=== PATIENT | female | born 1945 | race Two or more races ===

== ENCOUNTER 2017-09-03 18:31 | Emergency (ER) | payer MEDICARE, OTHER ==
[~2017-09-03] VITALS: Ht 165.1 cm; Wt 63.5 kg
[2017-09-03] MEDS ORDERED: methylPREDNISolone SOD SUCC 125 MG/2 ML VL IV ONE (19:45)
[2017-09-03 20:28] LABS: Basophils # (auto) 0 uL; Basophils % (auto) 0.4 % (0.0-2.0); Eosinophils # (auto) 0.1 uL; Eosinophils % (auto) 1.6 % (0.0-7.0); Hematocrit 38.8 % (36.0-46.0); Lymphocytes # (auto) 2.6 uL; Lymphocytes % (auto) 51.7 % (10.0-50.0); Mean Corpuscular Hemoglobin 32.7 pg (28.0-32.0); Mean Corpuscular Hgb Conc. 33.5 g/dL (32.0-36.0); Mean Corpuscular Volume 97.8 fL (80.0-100.0); Monocytes # (auto) 0.4 uL; Monocytes % (auto) 7.7 % (0.0-12.0); Neutrophils % (auto) 38.6 % (37.0-80.0); Nucleated Red Blood Cells % 0.1 %; Platelet Count (auto) 219 10^3/uL (140-450); White Blood Cell 5.1 10^3/uL (4.4-10.8)
[2017-09-03 20:40] LABS: Albumin 3.7 g/dL (3.4-5.0); Alkaline Phosphatase 70 U/L (45-117); Anion Gap 10 (5-15); Aspartate Aminotransferase 40 U/L (15-37); BUN/Creatinine Ratio 14.1; Bilirubin, Total 0.4 mg/dL (0.2-1.0); Blood Urea Nitrogen 9 mg/dL (7-18); Calcium 8.7 mg/dL (8.5-10.1); Carbon Dioxide 23 mmol/L (21-32); Chloride 106 mmol/L (98-107); GFR African American 118 mL/min; GFR Non-African American 97 mL/min; Glucose 91 mg/dL (74-106); Magnesium 2.5 mg/dL (1.6-2.6); Potassium 3.4 mmol/L (3.5-5.1); Sodium 139 mmol/L (136-145); Total Protein 7.5 g/dL (6.4-8.2)
[2017-09-03 21:50] VITALS: BP 146/72
== END 2017-09-03 22:02 | disposition home or self-care (01) ==
LOC: ER 18:40
DX: J44.1 Chronic obstructive pulmonary disease with (acute) exacerbation (principal); Z87.891 Personal history of nicotine dependence
CPT/HCPCS: 36415; 71010; 80053; 83735; 84484; 85025; 93005; 94761; 96374; 99285; J2930

== ENCOUNTER 2018-01-21 11:40 | Emergency (ER) | payer MEDICARE, OTHER ==
[~2018-01-21] VITALS: Ht 160 cm; Wt 70.3 kg
[2018-01-21 11:45] VITALS: BP 147/71
[2018-01-21] MEDS ORDERED: KETOROLAC TROMETH 30 MG/ML 1ML VIAL IM ONE (12:30)
== END 2018-01-21 13:19 | disposition home or self-care (01) ==
LOC: EDBD 11:40 → ER 11:40
DX: S13.4XXA Sprain of ligaments of cervical spine, initial encounter (principal); J44.9 Chronic obstructive pulmonary disease, unspecified; M79.7 Fibromyalgia; Z90.710 Acquired absence of both cervix and uterus; Z88.0 Allergy status to penicillin; V43.52XA Car driver injured in collision with other type car in traffic accident, initial encounter; Y93.89 Activity, other specified; Y99.8 Other external cause status; Y92.89 Other specified places as the place of occurrence of the external cause
CPT/HCPCS: 72125; 96372; 99284; J1885

== ENCOUNTER 2019-12-29 09:14 | Emergency (ER) | payer MEDICARE, OTHER ==
[~2019-12-29] VITALS: Ht 157.5 cm; Wt 69.4 kg
[2019-12-29 10:17] LABS: Urine WBC None Seen /hpf (0 - 5)
[2019-12-29] MEDS: methylPREDNISolone SOD SUCC 125 MG/2 ML VL IV ONE (10:33)
[2019-12-29 10:41] LABS: Urine Bacteria NONE SEEN /hpf (None Seen); Urine Blood Negative /uL (Negative); Urine Specific Gravity 1.005 (1.001-1.035)
[2019-12-29 10:43] LABS: Basophils # (auto) 0 uL; Eosinophils # (auto) 0 uL; Mean Corpuscular Hemoglobin 26.9 pg (28.0-32.0); Monocytes # (auto) 0.3 uL; Neutrophils # (auto) 1.7 uL; Nucleated Red Blood Cells % 0.1 %
[2019-12-29 10:46] LABS: Albumin 4.1 g/dL (3.4-5.0); Calcium 9.2 mg/dL (8.5-10.1); Potassium 3.8 mmol/L (3.5-5.1)
[2019-12-29 10:47] LABS: Basophils % (auto) 1.6 % (0.0-2.0); Eosinophils % (auto) 0.4 % (0.0-7.0); Hematocrit 35.3 % (36.0-46.0); Hemoglobin 11.6 g/dL (12.2-16.2); Mean Corpuscular Hgb Conc. 32.8 g/dL (32.0-36.0); Mean Corpuscular Volume 81.9 fL (80.0-100.0); Monocytes % (auto) 9.6 % (0.0-12.0); Neutrophils % (auto) 56.4 % (37.0-80.0); Platelet Count (auto) 375 10^3/uL (140-450); Red Blood Cells 4.31 10^6/uL (4.0-5.20)
[2019-12-29 10:50] LABS: Bilirubin, Total 0.7 mg/dL (0.2-1.0); Total Protein 7.8 g/dL (6.4-8.2)
[2019-12-29] MEDS: ALBUTEROL SULF 2.5 MG/0.5ML(0.5%) NEB SOLN HHN ONE (11:10)
[2019-12-29] MEDS: IPRATROPIUM BROM 0.5 MG/2.5ML INH SOL HHN ONE (11:10)
[2019-12-29 12:02] VITALS: BP 160/63
== END 2019-12-29 12:17 | disposition home or self-care (01) ==
LOC: ER 09:14 → EDBD 09:14 → ER 12:17
DX: J44.1 Chronic obstructive pulmonary disease with (acute) exacerbation (principal); I10 Essential (primary) hypertension; Z87.891 Personal history of nicotine dependence; Z90.710 Acquired absence of both cervix and uterus; Z88.0 Allergy status to penicillin
CPT/HCPCS: 36415; 71045; 80053; 81001; 85025; 93005; 94640; 96374; 99284; J2930; J7611; J7644

== ENCOUNTER 2023-02-22 11:31 | Inpatient (IN) | payer MEDICARE, OTHER ==
[~2023-02-22] VITALS: Ht 154.9 cm; Wt 74.1 kg
[2023-02-22] MEDS ORDERED: ONDANSETRON HCL 4 MG/2 ML VIAL IV ONE (12:15)
[2023-02-22] MEDS ORDERED: SODIUM CHLORIDE 0.9% 1,000 ML IV ONE (12:15)
[2023-02-22 13:28] LABS: Albumin 3.3 g/dL (3.4-5.0); BUN/Creatinine Ratio 16.8 (10.0-20.0); Calcium 8.1 mg/dL (8.5-10.1); Potassium 4.2 mmol/L (3.5-5.1)
[2023-02-22 13:31] LABS: Partial Thromboplastin Time 24.6 sec (24.6-33.4)
[2023-02-22 13:37] LABS: Bilirubin, Total 0.7 mg/dL (0.2-1.0); Total Protein 6.1 g/dL (6.4-8.2)
[2023-02-22 13:43] LABS: Hematocrit 36.4 % (36.0-46.0); Hemoglobin 12.2 g/dL (12.2-16.2); Mean Corpuscular Hgb Conc. 33.4 g/dL (32.0-36.0); Mean Corpuscular Volume 95.9 fL (80.0-100.0); White Blood Cell 7.4 10^3/uL (4.4-10.8)
[2023-02-22 13:45] LABS: Basophils % (manual) 0 (0.0-2.0); Blast Cells 0; Metamyelocytes % 0; Myelocytes % 0; Promyelocytes % 0; Reactive Lymphocytes 0
[2023-02-22 14:09] LABS: Band Neutrophils % (manual) 44; Eosinophils % (manual) 1 (0-7); Lymphocytes % (manual) 7 (10.0-50.0); Monocytes % (manual) 8 (0-12)
[2023-02-22] MEDS ORDERED: levoFLOXacin 500MG 100 ML IV ONE (14:30)
[2023-02-22] MEDS ORDERED: HEPARIN DRIP/D5W 100UNITS/ML 250 ML IV SCH ×2 (14:30)
[2023-02-22] MEDS ORDERED: HEPARIN SODIUM (PORCINE) 5000 UNITS/ML 1ML VIAL IV ONE ×2 (14:30)
[2023-02-22] MEDS ORDERED: ASPirin 325 MG TAB PO ONE (14:30)
[2023-02-22 15:13] LABS: Basophils # (auto) 0 10 ^3/uL (0-0.2); Basophils % (auto) 0.1 % (0.0-2.0); Eosinophils # (auto) 0 10 ^3/uL (0-0.8); Hematocrit 34.3 % (36.0-46.0); Hemoglobin 11.4 g/dL (12.2-16.2); Lymphocytes # (auto) 0.3 10 ^3/uL (0.4-5.4); Lymphocytes % (auto) 5.2 % (10.0-50.0); Mean Corpuscular Hemoglobin 32.1 pg (28.0-32.0); Mean Corpuscular Hgb Conc. 33.2 g/dL (32.0-36.0); Mean Corpuscular Volume 96.8 fL (80.0-100.0); Monocytes # (auto) 0.5 10 ^3/uL (0-1.3); Monocytes % (auto) 7.8 % (0.0-12.0); Neutrophils # (auto) 5.7 10 ^3/uL (1.6-8.6); Neutrophils % (auto) 86.9 % (37.0-80.0); Nucleated Red Blood Cells % 0.1 %; Red Blood Cells 3.55 10^6/uL (4.0-5.20); Red Cell Distribution Width 15.2 % (11.8-14.3); White Blood Cell 6.6 10^3/uL (4.4-10.8)
[2023-02-22 15:55] LABS: INR 1.03 (0.9-1.15); Partial Thromboplastin Time 29.3 sec (24.6-33.4)
[2023-02-22] MEDS ORDERED: BENZ100C97 PO (16:38)
[2023-02-22] MEDS ORDERED: FLUC150T2 PO (16:38)
[2023-02-22] MEDS ORDERED: PREG-110 PO (16:38)
[2023-02-22] MEDS ORDERED: METH4PAK3 PO (16:38)
[2023-02-22] MEDS ORDERED: METH2.5T PO (16:38)
[2023-02-22] MEDS ORDERED: AMLO-489 PO (16:38)
[2023-02-22] MEDS ORDERED: MORP1TAB12 PO (16:38)
[2023-02-22] MEDS ORDERED: MELO1TAB56 PO (16:38)
[2023-02-22] MEDS ORDERED: FOLI1TAB6 PO (16:38)
[2023-02-22] MEDS ORDERED: HYDR200T36 PO (16:38)
[2023-02-22] MEDS ORDERED: ACETAMINOPHEN 325 MG TAB PO PRN (16:45)
[2023-02-22] MEDS ORDERED: PANTOPRAZOLE 40 MG/10 ML VIAL INJ IV ONE (16:45)
[2023-02-22] MEDS ORDERED: ALBUTEROL SULF 2.5 MG/0.5ML(0.5%) NEB SOLN NEB PRN (16:45)
[2023-02-22] MEDS ORDERED: MORPHINE SULFATE INJ 2 MG/ml SYRG IV PRN (16:45)
[2023-02-22] MEDS ORDERED: NITROGLYCERIN 0.4 MG SL TAB SL PRN (16:45)
[2023-02-22] MEDS ORDERED: cefTRIAXone 1GM/50ML D5W 50 ML IV ONE (16:45)
[2023-02-22] MEDS ORDERED: methylPREDNISolone SOD SUCC 125 MG/2 ML VL IV ONE (16:45)
[2023-02-22 17:02] LABS: Triglycerides 45 mg/dL (< 150)
[2023-02-22 17:07] LABS: Cholesterol 123 mg/dL (< 200); HDL Cholesterol 61 mg/dL (40-59); LDL Cholesterol 56 mg/dL (< 100)
[2023-02-22] MEDS: SODIUM CHLORIDE 0.9% 1,000 ML IV SCH (17:28)
[2023-02-22] MEDS ORDERED: AZITHROMYCIN 500MG/ 250ML 250 ML IV ONE (17:30)
[2023-02-22] MEDS ORDERED: IOHEXOL 350 MG/ML 100ML IJ ONE (17:47)
[2023-02-22] MEDS: IPRATROPIUM BROM 0.5 MG/2.5ML INH SOL NEB SCH ×2 (18:24→22:24)
[2023-02-22] MEDS: ALBUTEROL SULF 2.5 MG/0.5ML(0.5%) NEB SOLN NEB SCH ×2 (18:24→22:24)
[2023-02-22 18:25] VITALS: BP 114/57
[2023-02-22 23:20] LABS: Urine Bacteria NONE SEEN /hpf (None Seen); Urine Blood 2+ /uL (Negative); Urine Specific Gravity 1.014 (1.001-1.035); Urine WBC <1 /hpf (0 - 5)
[2023-02-22] MEDS: PREGABALIN CAPSULE 75 MG CAP PO SCH (23:27)
[2023-02-22] MEDS: methylPREDNISolone SOD SUCC 125 MG/2 ML VL IV SCH (23:27)
[2023-02-22] MEDS: PREGABALIN 25 MG CAP PO SCH (23:27)
[2023-02-22 23:36] LABS: Alcohol, Urine < 3.0 mg/dL (0-10); Amphetamine Screen, Urine NEGATIVE (NEGATIVE); Barbiturate Scree,Urine NEGATIVE (NEGATIVE); Benzodiazephine Screen, Urine NEGATIVE (NEGATIVE); Cannabinoid Screen, Urine NEGATIVE (NEGATIVE); Cocaine Screen, Urine NEGATIVE (NEGATIVE); Opiate Scree,Urine POSITIVE (NEGATIVE); Phencyclidine Screen, Urine NEGATIVE (NEGATIVE)
[2023-02-23 01:44] LABS: INR 1.15 (0.9-1.15)
[2023-02-23 01:49] LABS: Partial Thromboplastin Time 102.4 sec (24.6-33.4)
[2023-02-23] MEDS ORDERED: HEPARIN DRIP/D5W 100UNITS/ML 250 ML IV SCH ×3 (02:00→15:30)
[2023-02-23] MEDS: ALBUTEROL SULF 2.5 MG/0.5ML(0.5%) NEB SOLN NEB SCH ×6 (02:05→21:31)
[2023-02-23] MEDS: IPRATROPIUM BROM 0.5 MG/2.5ML INH SOL NEB SCH ×6 (02:05→21:31)
[2023-02-23 06:21] LABS: Basophils # (auto) 0 10 ^3/uL (0-0.2); Eosinophils # (auto) 0 10 ^3/uL (0-0.8); Hematocrit 34.4 % (36.0-46.0); Hemoglobin 11.8 g/dL (12.2-16.2); Lymphocytes # (auto) 1.1 10 ^3/uL (0.4-5.4); Lymphocytes % (auto) 7.1 % (10.0-50.0); Mean Corpuscular Hemoglobin 32.9 pg (28.0-32.0); Mean Corpuscular Hgb Conc. 34.2 g/dL (32.0-36.0); Mean Corpuscular Volume 96.3 fL (80.0-100.0); Monocytes # (auto) 0.6 10 ^3/uL (0-1.3); Monocytes % (auto) 3.7 % (0.0-12.0); Neutrophils # (auto) 13.3 10 ^3/uL (1.6-8.6); Neutrophils % (auto) 89.2 % (37.0-80.0); Red Blood Cells 3.57 10^6/uL (4.0-5.20); Red Cell Distribution Width 15.2 % (11.8-14.3); White Blood Cell 14.9 10^3/uL (4.4-10.8)
[2023-02-23 06:38] LABS: Potassium 4.5 mmol/L (3.5-5.1)
[2023-02-23 06:54] LABS: Albumin 2.8 g/dL (3.4-5.0); BUN/Creatinine Ratio 15.8 (10.0-20.0); Bilirubin, Total 0.4 mg/dL (0.2-1.0); Calcium 8.4 mg/dL (8.5-10.1); Total Protein 6.3 g/dL (6.4-8.2)
[2023-02-23 09:00] LABS: INR 1.12 (0.9-1.15); Partial Thromboplastin Time 39.3 sec (24.6-33.4)
[2023-02-23] MEDS: SODIUM CHLORIDE 0.9% 1,000 ML IV SCH (09:25)
[2023-02-23] MEDS: PREGABALIN CAPSULE 75 MG CAP PO SCH ×2 (10:00→21:28)
[2023-02-23] MEDS: cefTRIAXone 1GM/50ML D5W 50 ML IV SCH (10:35)
[2023-02-23] MEDS: FOLIC ACID 1 MG TAB PO SCH (10:35)
[2023-02-23] MEDS: amLODIPine BESYLATE 5 MG TAB PO SCH (10:36)
[2023-02-23] MEDS: PANTOPRAZOLE 40 MG/10 ML VIAL INJ IV SCH (10:48)
[2023-02-23] MEDS: methylPREDNISolone SOD SUCC 125 MG/2 ML VL IV SCH ×2 (10:49→21:27)
[2023-02-23] MEDS: AZITHROMYCIN 500MG/ 250ML 250 ML IV SCH (11:44)
[2023-02-23] MEDS: hydrOXYchloroQUINE SULFATE 200 MG TAB PO SCH (12:39)
[2023-02-23] MEDS: PREGABALIN 25 MG CAP PO SCH ×2 (12:39→21:27)
[2023-02-23] MEDS: METHOTREXATE 2.5 MG TAB PO SCH (12:40)
[2023-02-23] MEDS: MELOXICAM 15 MG PO SCH (12:41)
[2023-02-23 13:08] VITALS: BP 135/57
[2023-02-23 14:51] LABS: INR 1.2 (0.9-1.15); Partial Thromboplastin Time 47.8 sec (24.6-33.4)
[2023-02-23 16:43] VITALS: BP 147/62
[2023-02-23] MEDS: HYDROcodone-ACET 5/325MG TAB PO PRN (19:07)
[2023-02-23 20:00] VITALS: BP 135/57
[2023-02-23 22:00] VITALS: BP 135/57
[2023-02-23 22:13] LABS: INR 1.02 (0.9-1.15); Partial Thromboplastin Time 61.8 sec (24.6-33.4)
[2023-02-24] MEDS: HYDROcodone-ACET 5/325MG TAB PO PRN (01:45)
[2023-02-24] MEDS: SODIUM CHLORIDE 0.9% 1,000 ML IV SCH ×2 (02:05→18:08)
[2023-02-24] MEDS: ALBUTEROL SULF 2.5 MG/0.5ML(0.5%) NEB SOLN NEB SCH ×6 (02:10→23:11)
[2023-02-24] MEDS: IPRATROPIUM BROM 0.5 MG/2.5ML INH SOL NEB SCH ×6 (02:10→23:11)
[2023-02-24 05:00] VITALS: BP 147/68
[2023-02-24 05:17] LABS: INR 0.94 (0.9-1.15); Partial Thromboplastin Time 56.8 sec (24.6-33.4)
[2023-02-24] MEDS: cefTRIAXone 1GM/50ML D5W 50 ML IV SCH (08:54)
[2023-02-24 09:02] VITALS: BP 146/82
[2023-02-24] MEDS: PREGABALIN CAPSULE 75 MG CAP PO SCH ×2 (09:39→22:06)
[2023-02-24] MEDS: PREGABALIN 25 MG CAP PO SCH ×2 (09:39→22:07)
[2023-02-24] MEDS: amLODIPine BESYLATE 5 MG TAB PO SCH (09:40)
[2023-02-24] MEDS: hydrOXYchloroQUINE SULFATE 200 MG TAB PO SCH (09:41)
[2023-02-24] MEDS: FOLIC ACID 1 MG TAB PO SCH (09:41)
[2023-02-24] MEDS: PANTOPRAZOLE 40 MG/10 ML VIAL INJ IV SCH (09:42)
[2023-02-24] MEDS: methylPREDNISolone SOD SUCC 125 MG/2 ML VL IV SCH ×2 (09:42→22:07)
[2023-02-24] MEDS: METHOTREXATE 2.5 MG TAB PO SCH ×2 (09:43→10:59)
[2023-02-24] MEDS: MELOXICAM 15 MG PO SCH (10:59)
[2023-02-24] MEDS: AZITHROMYCIN 500MG/ 250ML 250 ML IV SCH (10:59)
[2023-02-24 11:06] LABS: INR 0.9 (0.9-1.15); Partial Thromboplastin Time 43.3 sec (24.6-33.4)
[2023-02-24] MEDS: HEPARIN DRIP/D5W 100UNITS/ML 250 ML IV SCH (12:58)
[2023-02-24 13:44] VITALS: BP 137/56
[2023-02-24 17:05] VITALS: BP 139/55
[2023-02-24] MEDS: MORPHINE SULFATE INJ 2 MG/ml SYRG IV PRN (18:22)
[2023-02-24 20:00] VITALS: BP 147/73
[2023-02-24 22:00] VITALS: BP 147/73
[2023-02-24 23:10] LABS: INR 0.9 (0.9-1.15); Partial Thromboplastin Time 56.1 sec (24.6-33.4)
[2023-02-25] MEDS: HEPARIN DRIP/D5W 100UNITS/ML 250 ML IV SCH (01:13)
[2023-02-25] MEDS: IPRATROPIUM BROM 0.5 MG/2.5ML INH SOL NEB SCH ×5 (02:00→14:57)
[2023-02-25] MEDS: ALBUTEROL SULF 2.5 MG/0.5ML(0.5%) NEB SOLN NEB SCH ×5 (02:00→14:57)
[2023-02-25] MEDS: MORPHINE SULFATE INJ 2 MG/ml SYRG IV PRN (04:47)
[2023-02-25 05:00] VITALS: BP 139/53
[2023-02-25 05:54] LABS: INR 0.94 (0.9-1.15)
[2023-02-25 08:00] VITALS: BP 153/60
[2023-02-25 09:00] VITALS: BP 153/60
[2023-02-25] MEDS: cefTRIAXone 1GM/50ML D5W 50 ML IV SCH (09:18)
[2023-02-25] MEDS: AZITHROMYCIN 500MG/ 250ML 250 ML IV SCH (10:14)
[2023-02-25] MEDS: PANTOPRAZOLE 40 MG/10 ML VIAL INJ IV SCH (10:14)
[2023-02-25] MEDS: hydrOXYchloroQUINE SULFATE 200 MG TAB PO SCH (10:16)
[2023-02-25] MEDS: PREGABALIN 25 MG CAP PO SCH (10:16)
[2023-02-25] MEDS: FOLIC ACID 1 MG TAB PO SCH (10:16)
[2023-02-25] MEDS: PREGABALIN CAPSULE 75 MG CAP PO SCH (10:17)
[2023-02-25] MEDS: amLODIPine BESYLATE 5 MG TAB PO SCH (10:17)
[2023-02-25] MEDS: METHOTREXATE 2.5 MG TAB PO SCH (10:18)
[2023-02-25] MEDS: MELOXICAM 15 MG PO SCH (10:19)
[2023-02-25] MEDS: methylPREDNISolone SOD SUCC 125 MG/2 ML VL IV SCH (10:45)
[2023-02-25] MEDS ORDERED: AZIT500T66 PO (11:20)
[2023-02-25 13:41] VITALS: BP 148/73
== END 2023-02-25 15:36 | disposition home or self-care (01) | DRG 871 ==
LOC: EDBD 11:31 → ER 11:31 → TELE 16:36 → TELE-EAST 02-23 12:02
PROVIDERS: ADMIT Nurse Practitioner Family; ATTEND Family Medicine
DX: A41.9 Sepsis, unspecified organism (principal); I21.4 Non-ST elevation (NSTEMI) myocardial infarction; J18.9 Pneumonia, unspecified organism; J96.21 Acute and chronic respiratory failure with hypoxia; J44.0 Chronic obstructive pulmonary disease with (acute) lower respiratory infection; J44.1 Chronic obstructive pulmonary disease with (acute) exacerbation; Z20.822 Contact with and (suspected) exposure to COVID-19; E66.01 Morbid (severe) obesity due to excess calories; F10.10 Alcohol abuse, uncomplicated; G62.9 Polyneuropathy, unspecified; I10 Essential (primary) hypertension; M06.9 Rheumatoid arthritis, unspecified; Z68.30 Body mass index [BMI] 30.0-30.9, adult
CPT/HCPCS: 36415; 36600; 71250; 71275; 74176; 80053; 80061; 80307; 81001; 82805; 83036; 83605; 83690; 84443; 84484; 85007; 85025; 85027; 85379; 85610; 85730; 87040; 87077; 87186; 87426; 87804; 93005; 93306; 94640; 96361; 96365; 96366; 96367; 96368; 96375; C9113; G0378; J0696; J1956